=== PATIENT | male | born 1990 | race Two or more races ===

== ENCOUNTER → 2024-01-28 | Emergency (ER) | payer BC ==
[~2024-01-28] VITALS: Ht 180.3 cm; Wt 95.3 kg
[~2024-01-28] MED LIST: 0.9 % SODIUM CHLORIDE 1,000 ML IV SCH; AMIODARONE HCL 50 MG/ML AMPUL IV ONE; AMIODARONE IN DEXTROSE,ISO-OSM 360 MG/200 ML IV.SOLN IV SCH; DILTIAZEM HCL 25 MG/5 ML VIAL IV ONE; ENOXAPARIN SODIUM 80 MG/0.8 ML SYRINGE SUBCUTANEO ONE
[2024-01-28 18:23] VITALS: BP 132/85; O2SAT 99
[2024-01-28 19:04] LABS: HEMATOCRIT 44.4 % (39.0-48.0); HEMOGLOBIN 15.3 g/dL (13-16.00); MEAN CORPUSCULAR HEMOGLOBIN 27.2 pg (27.00-32.0); MEAN CORPUSCULAR HGB CONC 34.4 g/dl (32.0-36.0); PLATELET COUNT 322 K/uL (150-450); RED BLOOD COUNT 5.62 M/uL (4.00-6.00); RED CELL DISTRIBUTION WIDTH 14.1 % (11.5-14.5)
[2024-01-28 19:24] LABS: PARTIAL THROMBOPLASTIN TIME 27.9 SECONDS (22.0-34.0); PROTHROMBIN TIME 10.9 SECONDS (9.0-11.5)
[2024-01-28 19:31] LABS: ALBUMIN 3.9 gm/dL (3.4-5.0); BILIRUBIN TOTAL 0.23 mg/dL (0.3-1.2); CALCIUM 8.8 mg/dL (8.5-10.1); CREATININE SERUM 0.8 mg/dL (0.70-1.30); GFR 110.66; POTASSIUM 3.4 mEq/L (3.5-5.1); TOTAL PROTEIN 7.9 gm/dL (6.4-8.2)
== END | disposition home or self-care (01) ==
LOC: ER 18:08 → EDBD 18:08 → ER 19:58
PROVIDERS: General Practice
DX: I48.91 Unspecified atrial fibrillation (principal)